=== PATIENT | female | born 1975 | race Caucasian/White ===

== ENCOUNTER 2016-05-25 09:04 | Emergency (ER) | payer OTHER ==
[~2016-05-25] VITALS: Ht 160 cm; Wt 77.1 kg
[2016-05-25 09:31] VITALS: BP 137/63
== END 2016-05-25 10:41 | disposition home or self-care (01) ==
LOC: ER 09:09
DX: S46.912A Strain of unspecified muscle, fascia and tendon at shoulder and upper arm level, left arm, initial encounter (principal); W18.00XA Striking against unspecified object with subsequent fall, initial encounter; Y93.89 Activity, other specified; Y99.8 Other external cause status; Y92.89 Other specified places as the place of occurrence of the external cause
CPT/HCPCS: 73060